=== PATIENT | male | born 1985 | race Caucasian/White ===

== ENCOUNTER 2024-08-19 20:58 | Emergency (ER) | payer OTHER, SELFPAY ==
[2024-08-19 21:00] VITALS: BP 140/90; PULSE 77; RESP 17; TEMP 36.4; O2SAT 100; BMI 23.6
--- NOTE | 2024-08-19 21:20 | ED.VIS.DENTA ---
HPI <JEFERSON Adkins - Last Filed: 08/19/24 21:43> History of Present Illness Chief Complaint: Dental Narrative Narrative: Patient is a 39-year-old male with no significant ankle history. Presenting to the emergency department complaints of left lower jaw pain is been ongoing for the last 3 days. Patient does have history of poor dentition, currently does not have a dentist. He denies any fever chills nausea vomiting. Patient's friend told to come to the emergency department secondary to the swelling to his lower jaw. PFSH <JEFERSON Adkins - Last Filed: 08/19/24 21:43> PFSH Home Medications ?Medication ?Instructions ?Recorded ?Last Taken ?Type ibuprofen 600 mg tablet 600 mg PO Q6H PRN PRN pain #20 08/19/24 Unknown Rx TABLETS penicillin V potassium 500 mg 500 mg PO 4X/DAY #40 tabs 08/19/24 Unknown Rx tablet Allergy/AdvReac Type Severity Reaction Status Date / Time No Known Allergies Allergy Verified 08/19/24 20:59 Social History Smoking Status: Never smoker ROS <JEFERSON Adkins - Last Filed: 08/19/24 21:43> ROS ED ROS Narrative Constitutional: Negative for fever, chills, weight loss, weakness Eyes: Negative for vision loss, vision change, double vision ENT: Negative for any sore throat, ear pain, congestion. Pain to the left lower jaw. Poor dentition. Cardiovascular: Negative for any chest pain, tightness, palpitations Respiratory: Negative for any cough, sputum production, hemoptysis, dyspnea, dyspnea on exertion, orthopnea Gastrointestinal: Negative for any abdominal pain, nausea, vomiting, diarrhea, constipation, blood in stool, blood in vomit : Negative for any urinary frequency, dysuria, retention, blood in urine Muscle skeletal: Negative for any neck pain, back pain Neurological: Negative for any headache, syncope, dizziness Skin: Negative for any rashes, itching, abrasions, lacerations Psychiatric: Negative for any depression, anxiety, stress, suicidal ideation, homicidal ideation Hematologic: Negative for any excessive bruising, easy bleeding EXAM <JEFERSON Adkins - Last Filed: 08/19/24 21:43> Physical Exam Narrative Exam Narrative: Vital signs reviewed. HEET: Head normocephalic atraumatic, TMs clear bilaterally. Posterior pharynx is clear, moist mucous membranes. Nares clear bilaterally. Patient has multiple dental caries, multiple teeth that are in different levels of decay, multiple fractured teeth. The patient does have some swelling to the left lower jaw. Patient does show some fluctuance to the left lower jaw. This could be an abscess. Neck: Supple with no lymphadenopathy or tenderness. No signs of meningismus. Cardiac: Regular rate and rhythm no murmurs gallops or rubs, equal peripheral pulses bilaterally. Respiratory: Lungs clear to auscultation bilaterally. No chest tenderness. Abdomen: Soft, nontender, nondistended. No abdominal bruit or pulsatile masses. No hepatosplenomegaly Extremities: No peripheral edema, no signs of gross trauma or deformity. Active full range of motion of all extremities. Neuro: Cranial nerves II through XII intact, no focal neurological deficits. Skin: Clean dry and intact with no rash, purpura, petechiae, vesicles or pustules. Backs/flank: No CVA tenderness, no midline spinal tenderness, no deformity. Psych: Normal mood and affect. No SI, HI or acute psychosis. Const Vital Signs: 08/19/24 21:00 Temperature 97.5 F L Temperature Source Temporal Pulse Rate 77 Respiratory Rate 17 Blood Pressure 140/90 H Blood Pressure Mean 106 Pulse Ox 100 Oxygen Delivery Method Room Air <Dr. Shaan Land DO - Last Filed: 08/19/24 22:22> Physical Exam Const Vital Signs: 08/19/24 21:00 Temperature 97.5 F L Temperature Source Temporal Pulse Rate 77 Respiratory Rate 17 Blood Pressure 140/90 H Blood Pressure Mean 106 Pulse Ox 100 Oxygen Delivery Method Room Air [facility] <JEFERSON Adkins - Last Filed: 08/19/24 21:43> [facility] Treatment and Re-Evaluation Narrative: Differential diagnosis includes however is not limited to: Irreversible pulpitis, dental caries, dental fracture, dental abscess Patient appears generally well, vital signs are stable, patient is nontoxic-appearing. Presenting to the emergency department with complaints of dental pain, left lower jaw swelling. Patient does have poor dentition, patient is in need of a dentist. Patient has no systemic symptoms. Patient replaced on Pen-Vee K 4 times a day for 10 days, he will also be given a dental referral list. Patient receiving ibuprofen as well for pain. He is instructed to use salt water gargles, as well as a take the antibiotics until finished. All questions answered, stable for discharge. Procedure note: Patient does have some fluctuance to the left lower jaw. This does look different than the other lower jaw. I was able to use Cetacaine spray. I was then able to make it to puncture wounds to the left lower jaw abscess. Copious amounts of yellow drainage was expelled. I was unable to use my fingers and gauze she had most of it out. Patient did tolerate well. Patient did feel better after the I&D. Patient will be placed on Pen-Vee K as well as ibuprofen. Patient was given dental referral list. Stable for discharge peer <Dr. Shaan Land, DO - Last Filed: 08/19/24 22:22> [facility] MDM Narrative Medical decision making narrative: Attending note: I have personally performed a face to face assessment of the patient and have reviewed the KEV note. I personally made/approved the management plan and take responsibility for the patient management. I performed a substantive portion of the visit including all aspects of the following. My romano findings include: Known dental carry increased facial swelling with 3 days hot and cold sensitivity. No dentist. No allergies. Exam focal dental decay tooth #19 missing tooth #18. There was fluctuance along the gumline of 18 and 19. Tender to palpation. No sublingual edema. Patient started ibuprofen and penicillin. Fluctuance was incised and drained by manager file with copious exudates. He will continue antibiotics. Outpatient dental list given for follow-up.. Discharge Plan Triage Chief Complaint: Dental ED Midlevel Provider: Flavio Sanchez ED Provider: Shaan Land Dx/Rx/DC Orders Clinical Impression: Dental caries, Toothache, Abscess, dental Instructions: ED Dental Pain, ED Dental Cavity Prescriptions: New penicillin V potassium 500 mg tablet 500 mg PO 4X/DAY Qty: 40 0RF ibuprofen 600 mg tablet 600 mg PO Q6H PRN PRN (Reason: pain) Qty: 20 0RF Primary Care Provider: Little Ayers NP Referrals: Little Ayers NP, [facility] [Primary Care Provider] - Activity Restrictions/Additional Instructions: Please follow-up with a dental referral list. Print Language: Korean Disposition Disposition: Home, Self Care Discharge Date/Time: 08/19/24 21:45
[2024-08-19] MEDS: Tetracaine/Benzocaine/Butamben 1 APPLIC TOPICAL (21:39)
[2024-08-19] MEDS: Penicillin Vk 250 MG Tablet 500 MG PO (21:40)
[2024-08-19] MEDS: Ibuprofen 600 MG Tablet PO (21:40)
== END 2024-08-19 21:45 | disposition home or self-care (01) ==
LOC: ED 21:33
PROVIDERS: Emergency Provider Emergency Medicine; PCP Nurse Practitioner Family; Visit Provider Emergency Medicine
DX: K02.9 Dental caries, unspecified (principal); K04.7 Periapical abscess without sinus
CPT/HCPCS: 99282